=== PATIENT | female | born 1980 | race Two or more races ===

== ENCOUNTER 2024-11-04 18:45 | Emergency (ER) | payer MEDICARE, SELFPAY ==
[2024-11-04 18:46] VITALS: BMI 25.9
[2024-11-04 19:23] VITALS: BP 119/74; PULSE 72; RESP 16; TEMP 36.9; O2SAT 99
--- NOTE | 2024-11-04 19:27 | XR_ITS ---
Examination: PA chest single view TECHNIQUE: Upright PA chest single view Date and time: November 04, 2024 1954 hours INDICATIONS: Chest pain and shortness of breath beginning 2 days ago. FINDINGS: Normal heart size. Lungs are clear. The osseous structures are intact IMPRESSION: No active disease.
--- NOTE | 2024-11-04 19:28 | EDRME_ITS ---
Rapid Medical Screening Exam [facility] Arrival date/time: 11/04/24 18:45 44F with history of HTN, GERD, and anxiety presents to ED with 2 days of burning/sharp CP, as well as some SOB. Patient denies URI symptoms. Patient has been taking her daily Protonix. Chief Complaint: Chest Pain Vital signs: Vital Signs Temperature 98.4 F 11/04/24 19:23 Pulse Rate 72 11/04/24 19:23 Respiratory Rate 16 11/04/24 19:23 Blood Pressure 119/74 11/04/24 19:23 Pulse Oximetry (%) 99 11/04/24 19:23 Oxygen Delivery Method Room Air 11/04/24 19:23
[2024-11-04] MEDS: MG HYD/AL HYD/SIME (Maalox Reg) SUSP 30 ML UDC PO (19:38)
[2024-11-04] MEDS: FAMOTIDINE 20 MG TABLET 40 MG PO (19:38)
[2024-11-04] MEDS: DIAZEPAM 5 MG TABLET PO (20:02)
[2024-11-04 20:08] LABS: Basophils # (Auto) 0.0 Thou/mm3 (0.0-0.2); Basophils % (Auto) 0 % (0-2.5); Eosinophils # (Auto) 0.0 Thou/mm3 (0.0-0.5); Eosinophils % (Auto) 0 % (0-10); Hematocrit 39.1 % (36.0-46.0); Hemoglobin 13.6 g/dL (12.0-16.0); Immature Granulocytes Auto 0.01 Thou/mm3 (0.00-0.00); Lymphocytes # (Auto) 2.1 Thou/mm3 (1.0-4.8); Lymphocytes % (Auto) 34 % (10-50); Mean Corpuscular HGB Conc 34.8 g/dl (31.0-37.0); Mean Corpuscular Hemoglobin 32.4 pg (25.0-35.0); Mean Corpuscular Volume 93 fL (80-100); Monocytes # (Auto) 0.5 Thou/mm3 (0.0-0.8); Monocytes % (Auto) 8 % (0-12); Neutrophils # (Auto) 3.5 Thou/mm3 (1.8-7.7); Neutrophils % (Auto) 58 % (37-80); Nucleated Red Blood Cell # 0.00 Thou/mm3 (0.00-0.00); Nucleated Red Blood Cell % 0 /100 WBC (0); Platelet Count 223 Thou/mm3 (140-440); RDW Standard Deviation 44.3 fL (36.4-46.3); Red Blood Count 4.20 Miln/mm3 (4.00-5.20); White Blood Count 6.1 Thou/mm3 (3.6-11.0)
[2024-11-04 20:24] LABS: B-Type Natriuretic Peptide 92 pg/mL (0-100)
[2024-11-04 20:26] LABS: Alanine Aminotransferase 23 U/L (10-49); Albumin, Serum 4.7 gm/dL (3.5-5.0); Albumin/Globulin Ratio 1.9 (1.2-2.2); Alkaline Phosphatase 57 U/L (46-116); Anion Gap 9 (7-16); Aspartate Amino Transferase 33 U/L (0-34); BUN/Creatinine Ratio 8 Ratio (12-20); Bilirubin,Total 0.5 mg/dL (0.3-1.2); Blood Urea Nitrogen 7 mg/dL (9-23); Calcium 9.9 mg/dL (8.3-10.6); Calcium (Corrected) 9.9 mg/dL (8.5-10.1); Carbon Dioxide 23.6 mMol/L (20.0-31.0); Chloride 110 mMol/L (98-107); Creatinine (Component) 0.9 mg/dL (0.6-1.3); Estimated Creatinine Clearance 70.3 mL/min (>60); Globulin 2.5 gm/dL (2.3-3.5); Glucose 123 mg/dL (74-106); Osmolality,Calculated 283 (275-295); Potassium 3.6 mMol/L (3.4-5.1); Sodium 143 mMol/L (136-145); Total Protein 7.2 gm/dL (5.7-8.2); Troponin I 0.033 ng/mL (0.0-0.045); eGFR > 60 See Note
[2024-11-04 22:29] LABS: Troponin I 0.023 ng/mL (0.0-0.045)
--- NOTE | 2024-11-05 01:00 | PC.NURSE ---
NO ANSWER AT ER LOBBY OR OUTSIDE ER TO BE RE EVALUATED.
--- NOTE | 2024-11-05 01:08 | PC.NURSE ---
NO ANSWER AT ER LOBBY OR OUTSIDE ER TO BE RE EVALUATED.
== END 2024-11-05 01:47 | disposition left against medical advice (07) ==
PROVIDERS: Physician Assistant; Emergency Provider Emergency Medicine
DX: R07.9 Chest pain, unspecified (principal); R06.02 Shortness of breath; R94.31 Abnormal electrocardiogram [ECG] [EKG]; Z53.29 Procedure and treatment not carried out because of patient's decision for other reasons
CPT/HCPCS: 36415; 71045; 80053; 83880; 84484; 85025; 93005; 99283; A9270